=== PATIENT | female | born 1975 | race Caucasian/White ===

== ENCOUNTER 2016-08-05 06:53 | Emergency (ER) | payer MEDICAID ==
[~2016-08-05] VITALS: Ht 165.1 cm; Wt 84.1 kg
[2016-08-05] MEDS ORDERED: CITA20TA9 PO (07:11)
[2016-08-05] MEDS ORDERED: CYCL-375 PO (07:11)
[2016-08-05] MEDS ORDERED: RIZA5TAB18 PO (07:11)
[2016-08-05] MEDS ORDERED: TOPI100 PO (07:11)
[2016-08-05] MEDS ORDERED: CHLO-204 PO (07:11)
[2016-08-05] MEDS ORDERED: LORA-192 PO (07:11)
[2016-08-05] MEDS ORDERED: DICY10I IM (07:11)
[2016-08-05] MEDS ORDERED: MORP30TA71 PO (07:11)
[2016-08-05 07:49] LABS: BASOPHILS % (AUTO) 0.6 % (0.0-2.0); EOSINOPHILS % (AUTO) 2.9 % (1.0-6.0); HEMATOCRIT 38.1 % (36-46); HEMOGLOBIN 12.4 g/dL (12.0-16.0); LYMPHOCYTES # (AUTO) 2.1 K/uL (1.0-4.8); LYMPHOCYTES % (AUTO) 41.4 % (22.0-44.0); MEAN CORPUSCULAR HEMOGLOBIN 29.2 pg (26.0-34.0); MEAN CORPUSCULAR HGB CONC 32.4 G/dL (31.0-37.0); MEAN CORPUSCULAR VOLUME 90 fL (80-100); MONOCYTES # (AUTO) 0.3 K/uL (0.1-1.0); MONOCYTES % (AUTO) 5.8 % (2.0-9.0); NEUTROPHILS # (AUTO) 2.5 K/uL (1.8-7.7); NEUTROPHILS % (AUTO) 49.3 % (40.0-70.0); PLATELET COUNT (AUTO) 186 K/uL (150-450); RED BLOOD CELL COUNT(AUTO) 4.23 MIL/uL (4.00-5.20)
[2016-08-05 08:00] LABS: ANION GAP 6 mmol/L (8-16); CALCIUM, TOTAL 8.5 mg/dL (8.8-10.5); CARBON DIOXIDE 26 mmol/L (22-29); CHLORIDE 107 mmol/L (98-107); GLOMERULAR FILTR. RATE CALC > 60 mL/min (>60); POTASSIUM 3.5 mmol/L (3.5-5.1); SODIUM SERUM 139 mmol/L (136-145); UREA NITROGEN, BLOOD 17 mg/dL (7-18)
[2016-08-05 08:06] LABS: ALANINE AMINOTRANSFERASE 31 U/L (12-78); ALBUMIN 3.7 g/dL (3.4-5.0); ASPARTATE AMINOTRANSFERASE 17 U/L (15-37); BILIRUBIN,TOTAL 0.3 mg/dL (0.1-1.0); TOTAL PROTEIN, SERUM 7.3 g/dL (6.4-8.2)
[2016-08-05 08:13] LABS: APPEARANCE,URINE CLEAR (CLEAR); GLUCOSE, URINE (UA) NEGATIVE (NEGATIVE); KETONES,URINE NEGATIVE (NEGATIVE); LEUKOCYTE ESTERASE ,URINE NEGATIVE (NEGATIVE); OCCULT BLOOD,URINE NEGATIVE (NEGATIVE); PH,URINE 5.5 (5.0-8.0); PROTEIN,URINE NEGATIVE (NEGATIVE)
[2016-08-05 08:24] LABS: RBC,URINE None Seen /HPF (0-2); SQUAMOUS EPITHELIAL CELL,UR Rare /LPF (None Seen); WBC,URINE None Seen /HPF (0-5)
[2016-08-05] MEDS ORDERED: KETOROLAC TROMETHAMINE 30 MG/ML VIAL IVP ONE (09:15)
[2016-08-05 12:42] VITALS: BP 112/67
== END 2016-08-05 12:51 | disposition home or self-care (01) ==
LOC: EMS 06:56
DX: R10.9 Unspecified abdominal pain (principal); Z88.1 Allergy status to other antibiotic agents; Z88.2 Allergy status to sulfonamides; Z88.5 Allergy status to narcotic agent; Z88.6 Allergy status to analgesic agent
CPT/HCPCS: 36415; 71010; 74176; 80053; 81001; 84703; 85025; 96374; 99285; J1885

== ENCOUNTER 2018-07-19 09:52 | Emergency (ER) | payer MEDICAID, OTHER ==
[~2018-07-19] VITALS: Ht 165.1 cm; Wt 84.1 kg
[~2018-07-19 09:52] MED LIST: CHLO-204 PO; CITA-106 PO; CYCL10TA7 PO; DICY10I IM; LORA-192 PO; MORP30TA71 PO; RIZA5TAB18 PO; TOPI100T37 PO
[2018-07-19] MEDS ORDERED: CETI10TA59 PO (10:09)
[2018-07-19] MEDS ORDERED: DICY20 PO (10:09)
[2018-07-19] MEDS ORDERED: CYCL10 PO (10:09)
[2018-07-19] MEDS ORDERED: VITAD1000 PO (10:13)
[2018-07-19] MEDS ORDERED: ONDANSETRON HCL 4 MG/2 ML VIAL IVP ONE (10:45)
[2018-07-19] MEDS ORDERED: SODIUM CHLORIDE 0.9% 1,000 ML IV ONE ×2 (10:45→14:00)
[2018-07-19] MEDS ORDERED: MORPHINE SULFATE 2 MG/ML SYRINGE IVP ONE (11:30)
[2018-07-19] MEDS ORDERED: METOCLOPRAMIDE HCL 5 MG/ML 2 ML VIAL IVP ONE (14:00)
[2018-07-19 16:12] VITALS: BP 110/69
== END 2018-07-19 16:20 | disposition home or self-care (01) ==
LOC: EMS 09:56
DX: G89.18 Other acute postprocedural pain (principal); R51 Headache; R11.0 Nausea; E20.9 Hypoparathyroidism, unspecified; G51.0 Bell's palsy; G89.29 Other chronic pain; M54.9 Dorsalgia, unspecified; M19.90 Unspecified osteoarthritis, unspecified site; M79.7 Fibromyalgia; F32.9 Major depressive disorder, single episode, unspecified; F41.9 Anxiety disorder, unspecified; Z79.899 Other long term (current) drug therapy; Z88.6 Allergy status to analgesic agent; Z98.890 Other specified postprocedural states; Z88.1 Allergy status to other antibiotic agents; Z88.8 Allergy status to other drugs, medicaments and biological substances
CPT/HCPCS: 96374; 96375; 99283; J2270; J2405; J2765; J7030